=== PATIENT | female | born 1980 | race Caucasian/White ===

== ENCOUNTER 2017-10-22 06:01 | Inpatient (IN) | payer OTHER ==
[~2017-10-22] VITALS: Ht 157.5 cm; Wt 97.5 kg
[~2017-10-22 06:01] MED LIST: FERATAB300 MG PO; IBUPROFEN800 MG PO; MOTRIN 600 MG600 MG PO; PERCOCET 325 MG1 TA2 PO; ULTRAM(MONOGRAP50 MG PO
--- NOTE | 2017-10-22 11:04 | Operative Report ---
Operative/Inv Procedure Report Surgery Date: 10/22/17 Name of Procedure: Repeat low transverse section via Pfannenstiel Pre-Operative Diagnosis: Term at 39 weeks 3 days, prior section. Post-Operative Diagnosis: Same Estimated Blood Loss: 500ml Surgeon/Line And Frame Poler: Mert Ellis MD, Dr. Anesthesia: spinal IV Fluids: 1500 mL lactated Ringer's Urine Output: 300 mL clear urine at the end of procedure Complications: None Condition: Stable Operative Indication: 37-year-old, G4 para 1021, 39 weeks 3 days intrauterine , prior section, patient desires elective repeat Operative/Procedure Note Note: The patient was taken to the operating room where spinal anesthesia was found to be adequate. She was then prepared and draped in the usual sterile fashion in the dorsal supine position with a leftward tilt. A Pfannenstiel skin incision was then made with the scalpel and carried through to the underlying layer of the fascia with the Bovie. The fascia was incised in the midline and the incision extended laterally with the Bovie. The inferior aspect of this fascial incision was then grasped with the Crow clamps, elevated, and underlying rectus muscle dissected off with scalpel. Attention was then turned to the superior aspect of this incision, which in a similar fashion was grasp, tented up with the Crow clamps, and the rectus muscle dissected off with scalpel. The rectus muscle with then in the midline, and the peritoneum was identified, tented up, and entered sharply with the Metzenbaum scissors. The peritoneal incision was then extended superiorly and inferiorly with good visualization of the bladder. The bladder blade was then inserted and the vesicouterine peritoneum identified, grasped with the pickups and entered sharply with the Metzenbaum scissors. The incision was then extended laterally and the bladder flap created digitally. The bladder blade was then reinserted and the lower uterine segment incised in a transverse fashion with the scalpel. The uterine incision was then extended laterally. The bladder blade was removed and head delivered atraumatically. The nose and mouth was suctioned with the suction bulb and cord clamped and cut. was handed off to the waiting pediatricians. The placenta was then removed manually, the uterus exteriorized, and cleared of all clots and debris. The uterine incision was repaired with 0 Vicryl in a running locked fashion. A second layer of the same suture was used to obtain excellent hemostasis. The uterus returned to the abdomen. The gutters were cleared of all clots, Adela was placed at the uterine incision site to achieve excellent hemostasis. And the peritoneum closed with the 3-0 Vicryl. The rectus muscle was reapproximated with 2-0 Vicryl. The fascia was reapproximated with 0 Vicryl in a running fashion. Subcutaneous adipose tissue was reapproximated with 3-0 plain suture. The skin was closed with 4-0 Vicryl subcuticularly. The patient tolerated the procedure well. Sponge, lap and needle counts were correct 2. The patient was taken to the recovery room in stable condition. Findings: Live male as cephalic presentation, TOD position, nuchal cord 1, clear fluid , tobacco curer present at delivery, Apgars 9 and 9, weight 7 lbs. 8 oz. Normal uterus, tubes, and ovaries.
[2017-10-23 07:39] LABS: ABSOLUTE BASOPHIL COUNT 0 /CUMM (0.0-0.2); ABSOLUTE EOSINOPHIL COUNT 0.1 /CUMM (0.0-0.7); ABSOLUTE GRANULOCYTE CT 7.5 /CUMM (1.4-6.5); ABSOLUTE MONOCYTE COUNT 0.7 /CUMM (0.10-0.60); BASOPHIL % 0.3 % (0.0-2.0); EOSINOPHIL % 0.6 % (0-5); GRANULOCYTE % 72.8 % (42.2-75.2); HEMATOCRIT 30.7 % (37-47); MEAN CORPUSCULAR HGB 28.3 PG (27.0-31.0); MEAN PLATELET VOLUME 12.6 FL (7.4-10.4); PLATELET COUNT 119 /CUMM (130-400); RBC DISTRIBUTION WIDTH 15.8 % (11.5-14.5); RED BLOOD CELL CT 3.57 /CUMM (4.20-5.40); WHITE BLOOD CELL COUNT 10.3 /CUMM (4.8-10.8)
--- NOTE | 2017-10-23 11:16 | PN- Post Delivery/GYN ---
Subjective Subjective: PT FEELS WELL. AMB / VOID / SHEEBA PO. NO CP / SOB. +FLATUS. +BF. Objective Last 24 Hrs of Vital Signs/I&O AFEB, V/SS Physical Exam: NAD ABD SOFT NT FF INC W/ DRESSING C / D / I CLAUDETTE MIN LOCHIA EXT +1 B/L LE EDEMA Current Medications: Current Medications Sig/Francis Start time Last Medication Dose Route Stop Time Status Admin Diphenhydramine HCl 25 MG Q6P PRN 10/22 1015 AC IV Docusate Sodium 100 MG .STK-MED ONE 10/23 0004 DC PO 10/23 0005 Docusate Sodium 100 MG AT BEDTIME PRN 10/22 0915 AC 10/23 PO 0018 Enoxaparin Sodium 40 MG DAILY@2100 10/22 2100 AC SC Ferrous Sulfate 325 MG BID 10/22 1000 AC PO Ibuprofen 800 MG Q6P PRN 10/22 0915 AC PO Ketorolac 30 MG .STK-MED ONE 10/23 0247 DC Tromethamine IM 10/23 0248 Ketorolac 30 MG Q6P PRN 10/22 1015 DC 10/23 Tromethamine IV 10/23 1014 0855 Lactated Ringer's 1,000 ML Q8H 10/22 0615 AC 10/22 IV 1655 Magnesium Hydroxide 30 ML DAILY NEEDED PRN 10/22 0915 AC PO Metoclopramide HCl 10 MG Q6P PRN 10/22 1015 AC IV Naloxone HCl 0.2 MG .Q5MIN PRN 10/22 1015 AC IV Oxycodone/ 1 TAB Q4P PRN 10/22 0915 AC Acetaminophen PO Oxycodone/ 2 TAB Q4P PRN 10/22 0915 AC Acetaminophen PO Oxytocin 20 UNITS Q8H 10/22 0915 DC 10/22 Lactated Ringer's 1,000 ML IV 10/22 1714 1033 Senna 187 MG AT BEDTIME NEED.. 10/22 0915 AC PO Last 24 Hrs of Labs/Trevor: Laboratory Tests 10/23/17 0615: CBC w Diff NO MAN DIFF REQ, RBC 3.57 L, MCV 86.0, MCH 28.3, MCHC 33.0, RDW 15.8 H, MPV 12.6 H, Gran % 72.8, Lymphocytes % 19.4 L, Monocytes % 6.9, Eosinophils % 0.6, Basophils % 0.3, Absolute Granulocytes 7.5 H, Absolute Lymphocytes 2.0, Absolute Monocytes 0.7 H, Absolute Eosinophils 0.1, Absolute Basophils 0 Assessment/Plan Assessment/Plan POD 1 S/P R C/S, DOING WELL -CONT ROUTINE POP CARE -ENC OOB / AMB
--- NOTE | 2017-10-24 09:10 | PN- OBGYN ---
Surgical Brief Attending Note Brief Attending Note: pt feeling well but c/o gas pain. amb / void / umair po. no n/v. +flatus. no bm. afeb, v/ss nad abd softly distended, nt , ff inc c / d / i blaine min lochia ext +2 b/l le ed a/p pod 2 s/p rpt c/s, doing well -rx mylecon -enc amb -routine pop care
--- NOTE | 2017-10-25 11:30 | PN- OBGYN ---
Surgical Brief Attending Note Brief Attending Note: PT FEELING WELL. AMB / VOID / SHEEBA PO. +BF. +FLATUS. AFEB V/SS NAD ABD SOFT NT ND FF INC C/D/I CLAUDETTE MIN LOCHIA EXT NT +2 B/L LE ED A/P POD 3 S/P R C/S, DOING WELL -D/C HOME W/ F/U 2 WKS -PT TO STAY CAREGIVER OVERNIGHT -D/C INSTRUCTIONS REVIEWED
[2017-10-25] MEDS ORDERED: IBUPROFEN800 M1 PO (11:39)
[2017-10-25] MEDS ORDERED: PERCOCET 5-3251 EACH PO (11:39)
--- NOTE | 2017-10-26 09:56 | Discharge Summary ---
Visit Information Visit Dates Admission Date: 10/22/17 Discharge Date: 10/25/17 Hospital Course Course Attending Physician: Mert Ellis MD Primary Care Physician: Aissatou JACOBSEN,[facility] Course: 37-year-old, she was admitted for elective repeat on 10/22/2017. Patient underwent repeat low transverse section via Pfannenstiel, delivered a live male infant at cephalic presentation without complications. During the hospital stay, patient remained in stable condition, she tolerated diet, void without difficulties, ambulating well. Vitals are within normal limits, abdomen soft, nontender, uterus firm, fundus below umbilicus, incision dry, clean and intact. She was discharged on postoperative day 3 with instructions given. Complications: NONE Allergies: Coded Allergies: gluten (Intermediate, STOMACH PAIN 10/22/17) Significant Procedures: Repeat low transverse section via Pfannenstiel Disposition Summary Disposition Principal Diagnosis: IUP at term, prior section Additional Diagnosis: anemia Discharge Disposition: home or self care Discharge Instructions General Discharge Information Code Status: Full Code Patient's Diet: Regular Patient's Activity: As tolerated Follow-Up Instructions/Appts: Follow-up in office in 2 weeks and 6 weeks Pelvic rest for 8 weeks Medications at Discharge Discharge Medications: Continue taking these medications: Ferrous Sulfate (Feratab) 300 MG TAB 300 Milligram ORAL Every Day Qty = 60 Start taking the following new medications: Ibuprofen (Ibuprofen) 800 MG TABLET 800 Milligram ORAL EVERY SIX HOURS NEEDED as needed for UTERINE CRAMPING Qty = 60 No Refills Comments: Last Taken: 10/25/17 Time: 11:30 AM Oxycodone HCl/Acetaminophen (Percocet 5-325 MG Tablet) 5 MG-325 MG TABLET 2 Tablet ORAL EVERY 4 HOURS NEEDED as needed for PAIN SCALE 7-10 (SEVERE) Qty = 30 No Refills Comments: Last Taken: 10/25/17 Time: 5:45 AM Copies To: Mert Ellis MD Attending MD Review Statement Documenting Attending: Mert Ellis MD
== END 2017-10-25 13:22 | DRG 765 ==
LOC: GNO 06:01
PROVIDERS: Obstetrics & Gynecology
PROC: 4A1HX4Z Monitoring of Products of Conception, Cardiac Electrical Activity, External Approach (ICD-10-PCS; principal; 2017-10-22)
PROC: 10D00Z1 Extraction of Products of Conception, Low, Open Approach (ICD-10-PCS; principal; 2017-10-22)
DX: O34.211 Maternal care for low transverse scar from previous cesarean delivery (principal); O99.12 Other diseases of the blood and blood-forming organs and certain disorders involving the immune mechanism complicating childbirth; D69.6 Thrombocytopenia, unspecified; N85.8 Other specified noninflammatory disorders of uterus; Z37.0 Single live birth; Z3A.39 39 weeks gestation of pregnancy; O69.81X0 Labor and delivery complicated by cord around neck, without compression, not applicable or unspecified
CPT/HCPCS: GNOS; 87086; J0690; J1650; J1885; J7120